=== PATIENT | female | born 1945 | race Caucasian/White ===

== ENCOUNTER → 2016-11-10 | Outpatient (CLI) | payer OTHER ==
[~2016-11-10] VITALS: Ht 154.9 cm; Wt 79.0 kg
[~2016-11-10] MED LIST: CALCIUM 600+D1 EACH PO; CHILD ASPIRIN81 M1 PO; GLIMEPIRIDE1 MG PO; MULTIVITAMIN1 EAC2 PO; NORVASC5 MG PO; VITAMIN D31000 UNI2 PO; VITAMIN D32000 UNIT PO; ZOCOR20 MG PO
[2016-11-10 08:35] VITALS: BP 169/72
== END | disposition home or self-care (01) ==
LOC: IVINF 11-02 15:00
DX: M81.0 Age-related osteoporosis without current pathological fracture (principal)
CPT/HCPCS: 96365; J3489

== ENCOUNTER → 2017-11-13 | Outpatient (CLI) | payer OTHER ==
[~2017-11-13] VITALS: Ht 154.9 cm; Wt 77.0 kg
[2017-11-13 08:04] VITALS: BP 147/69
== END | disposition home or self-care (01) ==
LOC: IVINF 07:30
DX: M81.0 Age-related osteoporosis without current pathological fracture (principal)
CPT/HCPCS: 96365; J3489